=== PATIENT | female | born 1995 ===

== ENCOUNTER 2020-06-28 13:23 | Emergency (ER) | payer SELFPAY ==
[~2020-06-28] VITALS: Ht 165.1 cm; Wt 72.7 kg
[2020-06-28 13:33] VITALS: BP 110/42; Ht 165.1 cm; Wt 72.7 kg
[2020-06-28 14:09] LABS: CALC OSMOLALITY 268 mosm/kg (275-300); CALCIUM 8.8 mg/dL (8.5-10.1); CARBON DIOXIDE 22.2 mmol/L (21.0-32.0); CHLORIDE - SERUM 104 mmol/L (98-107); CREATININE - SERUM 0.7 mg/dL (0.6-1.3); GLUCOSE 84 mg/dL (74-106); POTASSIUM - SERUM 4.1 mmol/L (3.5-5.1); SODIUM 135 mmol/L (136-145); UREA NITROGEN 13 mg/dL (7-18); eGFR NON AFRICAN AMERICAN > 90 mL/min (90-120)
[2020-06-28 14:36] LABS: ALBUMIN 3.4 g/dL (3.4-5.0); ALKALINE PHOSPHATASE 78 U/L (30-120); ALT (SGPT) 31 U/L (10-68); BILIRUBIN - TOTAL 0.21 mg/dL (0.2-1.3); HCG - QUANTITATIVE (MATERNAL) 58627 mIU/mL; PROTEIN - SERUM 7.5 g/dL (6.4-8.2)
[2020-06-28 14:45] LABS: BASOPHILS 0.1 % (0-2); EOSINOPHILS 0.9 % (0-7); HEMATOCRIT 30.2 % (36.0-48.0); HEMOGLOBIN 8.5 g/dL (12-16); IMMATURE GRANULOCYTES 0.2 % (0-5); LYMPHOCYTE ABS# 2.02 10x3/uL (1.18-3.74); LYMPHOCYTES 22.3 % (15-50); MCH 17.2 pg (26.0-34.0); MCHC 28.1 g/dL (31.0-37.0); MCV 61.3 fL (80.0-100.0); MONOCYTES 7.3 % (2-11); NEUTROPHIL ABS# 6.27 10x3/uL (1.56-6.13); NEUTROPHILS 69.2 % (40-80); PLATELET COUNT 257 10x3/uL (130-400); RBC 4.93 10x6/uL (4.00-5.40); RDW 21.9 % (11.5-14.5); WBC 9.1 10x3/uL (4.8-10.8)
[2020-06-28 14:50] LABS: BILIRUBIN NEGATIVE (NEGATIVE); KETONE NEGATIVE (NEGATIVE); NITRITE POSITIVE (NEGATIVE); UROBILINOGEN NORMAL mg/dL (< 2)
[2020-06-28 14:51] LABS: BACTERIA MANY HPF (NONE SEEN); SQUAMOUS EPITHELIAL 0-5 HPF (0-4); WHITE CELLS - URINE 25-50 HPF (0-4)
[2020-06-28] MEDS ORDERED: CEPHALEXIN500 M1 PO (17:19)
== END 2020-06-28 17:39 | disposition home or self-care (01) ==
LOC: D.ER 13:23
PROVIDERS: Family Medicine
DX: O00.01 Abdominal pregnancy with intrauterine pregnancy (principal)